=== PATIENT | female | born 2000 | race Caucasian/White ===

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

== ENCOUNTER 2020-02-11 21:18 | Outpatient (CLI) | payer OTHER ==
[~2020-02-11 21:18] MED LIST: IBUPROFEN600 MG PO; MUCINEX D ER 61 EACH PO; ZOFRAN ODT 4 MG4 MG GT; ZOFRAN4 MG PO
== END 2020-02-11 22:37 | disposition home or self-care (01) ==
LOC: GENOP 21:18
DX: O42.92 Full-term premature rupture of membranes, unspecified as to length of time between rupture and onset of labor (principal); O99.891 Other specified diseases and conditions complicating pregnancy; R10.9 Unspecified abdominal pain; R10.2 Pelvic and perineal pain; Z3A.38 38 weeks gestation of pregnancy
CPT/HCPCS: 83518; G0463

== ENCOUNTER 2020-02-19 16:46 | Inpatient (IN) | payer OTHER ==
[~2020-02-19] VITALS: Ht 172.7 cm; Wt 95.3 kg
[2020-02-19 18:12] LABS: HEMOGLOBIN 9.5 gm/dl (12.3-15.3); RED BLOOD COUNT 3.69 M/UL (4.00-5.10); WHITE BLOOD COUNT 12.7 K/UL (4.5-11.0)
[2020-02-21 06:39] LABS: HEMOGLOBIN 7.9 gm/dl (12.3-15.3)
[2020-02-22] MEDS ORDERED: IBUPROFEN600 MG PO (13:04)
[2020-02-22] MEDS ORDERED: LABETALOL HCL100 MG PO (13:04)
[2020-02-22] MEDS ORDERED: DOCUSATE SODIU100 MG PO (13:04)
[2020-02-22] MEDS ORDERED: HYDROCODON-ACE1 EAC4 PO (13:04)
== END 2020-02-22 19:05 | disposition home or self-care (01) | DRG 807 ==
LOC: GENOP 16:46 → OB 17:08
PROVIDERS: ADMIT Obstetrics & Gynecology
PROC: 0U7C7ZZ Dilation of Cervix, Via Natural or Artificial Opening (ICD-10-PCS; principal; 2020-02-19)
PROC: 4A1HX4Z Monitoring of Products of Conception, Cardiac Electrical Activity, External Approach (ICD-10-PCS; 2020-02-19)
PROC: 10E0XZZ Delivery of Products of Conception, External Approach (ICD-10-PCS; 2020-02-20)
PROC: 10907ZC Drainage of Amniotic Fluid, Therapeutic from Products of Conception, Via Natural or Artificial Opening (ICD-10-PCS; 2020-02-20)
PROC: 0W8NXZZ Division of Female Perineum, External Approach (ICD-10-PCS; 2020-02-20)
DX: O24.429 Gestational diabetes mellitus in childbirth, unspecified control (principal); Z37.0 Single live birth; Z3A.39 39 weeks gestation of pregnancy; O13.4 Gestational [pregnancy-induced] hypertension without significant proteinuria, complicating childbirth; Z20.822 Contact with and (suspected) exposure to COVID-19; E16.2 Hypoglycemia, unspecified
CPT/HCPCS: 36415; 51702; 81001; 82962; 85014; 85018; 85025; 90471; 90715; J2405; J2590; J3010; J7030; U0003

== ENCOUNTER 2020-06-24 03:23 | Emergency (ER) | payer OTHER ==
[~2020-06-24 03:23] MED LIST changes: +DOCUSATE SODIU100 MG PO; +HYDROCODON-ACE1 EAC4 PO; +LABETALOL HCL100 MG PO
[2020-06-24 04:05] LABS: HEMOGLOBIN 9.9 gm/dl (12.3-15.3); RED BLOOD COUNT 3.92 M/UL (4.00-5.10); WHITE BLOOD COUNT 7.8 K/UL (4.5-11.0)
[2020-06-24 04:26] LABS: BUN/CREATININE RATIO 24 (0-10)
[2020-06-24] MEDS ORDERED: ZOFRAN ODT 4 MG4 MG PO (06:06)
== END 2020-06-24 06:03 | disposition home or self-care (01) ==
LOC: ER1 03:23
PROVIDERS: Family Medicine
DX: D64.9 Anemia, unspecified (principal); R65.10 Systemic inflammatory response syndrome (SIRS) of non-infectious origin without acute organ dysfunction; R11.0 Nausea; E78.00 Pure hypercholesterolemia, unspecified; F17.290 Nicotine dependence, other tobacco product, uncomplicated
CPT/HCPCS: 71045; 80053; 81001; 83605; 83735; 84100; 85025; 87040; 87086; 93005; 96374; 99284; J2405; J7030